=== PATIENT | male | born 1960 | race Caucasian/White ===

== ENCOUNTER 2017-09-29 17:32 | Emergency (ER) | payer OTHER ==
[~2017-09-29] VITALS: Ht 179.1 cm; Wt 121.0 kg
[2017-09-29 17:33] VITALS: BP 146/89
== END 2017-09-29 19:43 | disposition home or self-care (01) ==
LOC: ED 19:35
DX: S00.83XA Contusion of other part of head, initial encounter (principal); S70.01XA Contusion of right hip, initial encounter; Y04.0XXA Assault by unarmed brawl or fight, initial encounter; Y93.89 Activity, other specified; Y92.89 Other specified places as the place of occurrence of the external cause; Y99.8 Other external cause status
CPT/HCPCS: 70100; 72190; 99284